=== PATIENT | male | born 1960 | race Caucasian/White ===

== ENCOUNTER 2018-03-29 13:05 | Observation (INO) ==
--- NOTE | 2018-03-29 13:45 | Emergency Department Note ---
Disposition Clinical Impression: Multiple rib fractures Qualifiers: Encounter type: initial encounter Fracture type: closed Laterality: left Qualified Code(s): S22.42XA - Multiple fractures of ribs, left side, initial encounter for closed fracture Disposition: Admitted As Inpatient Condition: Good Referrals: NONE,PCP [Primary Care Provider] - Forms: ED Satisfaction Letter Time of Disposition: 16:24 General Adult HPI - General Chief complaint: ED Fall Stated complaint: Fall 10-12' 1wk ago,CP,GABRIELA Time Seen by Provider: 03/29/18 13:44 Nursing Notes Reviewed: Yes Vital Signs Reviewed: Yes - History of Present Illness HPI Narrative: Male patient fell from a height of 10-12 feet approximately 1 week ago. No loss of consciousness but laid on the ground for a long period of time due to the pain and taking his breath. States he can no longer deal with the pain. Is complaining of left rib pain as well as left hip pain. Pain Scale: 10 - Related Data Home Medications Medication Instructions Recorded Confirmed No Known Home Drugs 03/29/18 03/29/18 Allergies Allergy/AdvReac Type Severity Reaction Status Date / Time meperidine [From Demerol] Allergy Anaphylaxis Verified 03/29/18 15:20 All systems ED: reviewed and negative except as stated. Constitutional: Denies: fever, chills Cardiovascular: Reports: chest pain (Left-sided to the ribs. Chest wall pain). Denies: syncope Respiratory: Reports: dyspnea (Cannot take a deep breath secondary to pain.). Denies: cough Gastrointestinal: Denies: abdominal pain, nausea, vomiting, diarrhea, hematemesis, melena, hematochezia Genitourinary: Denies: urgency, dysuria, frequency, testicular mass Musculoskeletal: Reports: other (Left hip pain). Denies: back pain, neck pain Integumentary: Denies: rash Neurological: Reports: weakness Past Medical History - Past Medical History Attestation: Yes The following information was validated with the patient. Source: patient Medical history: Reports: no medical history Psychiatric history: Reports: no psych history - Social History Smoking Status: Never smoker Alcohol use: Reports: occasionally Drug use: Reports: none Physical Exam - General Limitations: no limitations General appearance: alert, in no apparent distress - Head Head exam: atraumatic, normocephalic, normal inspection - Eye Eye exam: Present: normal appearance, PERRL, EOMI - ENT ENT exam: normal exam, normal oropharynx, mucous membranes moist - Neck Neck exam: Present: normal inspection, full ROM, trachea midline - Chest Chest inspection: Present: normal inspection, symmetric chest wall rise, tenderness (To palpation of left chest wall.) - Respiratory Respiratory exam: Present: normal lung sounds bilaterally, other (Diminished in the lower lobes.) - Cardiovascular Cardiovascular exam: Present: regular rate, normal rhythm, normal heart sounds - Abdominal Exam Abdominal exam: Present: soft, Non-Tender. Absent: tenderness, distention, guarding, rigidity, organomegaly, Rosales's sign, Rovsing's sign, tenderness at McBurney's Point - Extremities Exam Extremities exam: Present: normal inspection, full ROM, tenderness (To palpation of left hip. He has been ambulatory with no assistance.), normal capillary refill. Absent: pedal edema - Back Exam Back exam: Present: normal inspection, full ROM. Absent: tenderness - Neurological Exam Neurological exam: Present: alert, oriented X3 - Psychiatric Psychiatric exam: Present: normal affect, normal mood - Skin Skin exam: Present: warm, dry, intact, normal color Course Course Narrative: Male patient presents emergency department after a fall from 10-12 feet and off a ladder. This was mechanical. No loss of consciousness. This occurred one week ago. He was on the ground for an extended period of time secondary to pain and unable to catch his breath. Decided to come to the emergency department today because he can no longer stand the pain in his left side. He is also having some left hip pain. He states he cannot take a deep breath secondary to the pain. He does have multiple rib fractures on the left. Cerner for an increased mortality for the patient secondary to multiple rib fractures and him not being able to take a deep breath. There is also concern for predisposing the patient to pneumonia secondary to not take any deep breath. We have given pain medication here she has responded to well. However he states he is still in pain. He is mentating appropriately at this time. He is agreeable to admission for pain management as well as pulmonary therapy. - Consultations Consultation #1: Dr rodriguez accepted Pt in stable condition. Time: 16:11 Vital Signs Temperature 98.0 F 03/29/18 13:09 Pulse Rate 67 03/29/18 13:09 Respiratory Rate 20 03/29/18 13:09 Blood Pressure 152/90 03/29/18 13:09 O2 Sat by Pulse Oximetry 95 03/29/18 13:09 Temperature 98.0 F 03/29/18 13:40 Pulse Rate 69 03/29/18 15:41 Respiratory Rate 18 03/29/18 15:41 Blood Pressure 124/98 03/29/18 15:41 O2 Sat by Pulse Oximetry 95 03/29/18 13:40 Oxygen Delivery Oxygen Delivery Room Air Medical Decision Making - Medical Records Medical records reviewed: Yes I reviewed the patient's medical records. - Radiology Data Radiology results reviewed: Yes I reviewed the patient's radiology results. Chest X-Ray 03/29/18 13:14 IMPRESSION: Multiple left-sided rib fractures, including a displaced fracture of the left 6th rib, as well as nondisplaced fractures of the 7th, 8th and 9th ribs. No evidence of pneumothorax. D/ / 03/29/2018 14:02:04 Dre Barney MD / [email or web address] Interpreting Provider: Dre Barney MD Hip X-Ray 03/29/18 14:09 IMPRESSION: Right and left hip joint osteoarthritis. Prominence of the junction of the femoral head and neck bilateral can result in femoroacetabular impingement syndrome. Otherwise unremarkable AP pelvis and left hip radiographs. If pain persists or worsens, then additional evaluation with MRI is indicated to ensure no underlying radiographically occult process such as fracture, AVN or transient osteoporosis. D/ / Dandre Patel / Dandre Patel Interpreting Provider: Dandre Patel - EKG Data EKG #1 EKG attestation: Yes I reviewed and interpreted this EKG. EKG results narrative: Normal sinus rhythm at a rate of 65. CO interval is 131. QRS duration is 102. QT is 47. QTC is 419. No signs of acute ischemia. Good R-wave progression. No previous EKG to compare to.
--- NOTE | 2018-03-29 14:29 | Emergency Department Note ---
Disposition Clinical Impression: Multiple rib fractures Qualifiers: Encounter type: initial encounter Fracture type: closed Laterality: left Qualified Code(s): S22.42XA - Multiple fractures of ribs, left side, initial encounter for closed fracture Disposition: Still a Patient Forms: ED Satisfaction Letter General Adult HPI - General Chief complaint: ED Fall Stated complaint: Fall 10-12' 1wk ago,CP,GABRIELA Time Seen by Provider: 03/29/18 13:44 - History of Present Illness Pain Scale: 10 - Related Data Allergies Allergy/AdvReac Type Severity Reaction Status Date / Time No Known Allergies Allergy Verified 03/29/18 13:13 Past Medical History - Past Medical History Medical history: Reports: no medical history Psychiatric history: Reports: no psych history - Social History Smoking Status: Never smoker Alcohol use: Reports: occasionally Drug use: Reports: none Physical Exam - General General appearance: alert, in no apparent distress Course - Reevaluation(s) Reevaluation #1: Attestation note I examined this patient and my medical decision-making was reviewed with the emergency medicine resident. I agree with the documented findings, disposition and treatment plan as described except to the extent set forth below. Patient seen with emergency medicine resident Dr. Michelle Ramos, Please see a copy of his note for details of the H&P, ED evaluation, management and disposition. I have independently evaluated the patient and confirmed appropriate portions of the history and physical exam. Briefly: 57-year-old male slip fall off ladder about 10-12 feet several days ago arrives with left-sided back pain. No neck pain or loss of consciousness. Patient is neurologically nonfocal GCS 15. Otherwise healthy. Imaging so far reveals multiple left-sided rib fractures but no pneumothorax. This likely patient will need to be admitted to trauma service for further evaluation and management. Disposition pending Time: 14:26 Vital Signs Temperature 98.0 F 03/29/18 13:09 Pulse Rate 67 03/29/18 13:09 Respiratory Rate 20 03/29/18 13:09 Blood Pressure 152/90 03/29/18 13:09 O2 Sat by Pulse Oximetry 95 03/29/18 13:09 Temperature 98.0 F 03/29/18 13:40 Pulse Rate 67 03/29/18 13:40 Respiratory Rate 20 03/29/18 13:40 Blood Pressure 152/90 03/29/18 13:40 O2 Sat by Pulse Oximetry 95 03/29/18 13:40 Oxygen Delivery Oxygen Delivery Room Air
[2018-03-29] MEDS ORDERED: *HR* OxyCODONE/APAP 10/325 TABLET PO ONE (15:50)
[2018-03-29 16:20] LABS: Basophils # 0.1 K/mcL (0.0-0.2); Basophils % 0.6 %; Eosinophils # 0.2 K/mcL (0.0-0.6); Eosinophils % 1.7 %; Hemoglobin 14.8 g/dL (12.9-16.9); Immature Granulocytes % 0.2 % (0-4); Lymphocytes # 2.4 K/mcL (0.6-4.6); Lymphocytes % 24.9 %; Mean Corpuscular HGB Conc 34.4 g/dL (31.6-35.5); Mean Corpuscular Volume 90.1 fL (83.0-100.0); Mean Platelet Volume 10.6 fL (9.4-12.4); Monocytes # 0.9 K/mcL (0.0-1.3); Neutrophils # 6.2 K/mcL (1.6-8.9); Platelet Count 392 K/mcL (140-400); Red Blood Count 4.77 M/mcL (4.19-5.50); Segmented Neutrophils % 63.6 %
[2018-03-29 16:30] LABS: Alanine Aminotransferase 13 Units/L (7-52); Albumin 4.4 g/dL (3.5-5.7); Albumin/Globulin Ratio 1.5 (1.1-2.2); Alkaline Phosphatase 84 Units/L (34-104); Aspartate Amino Transferase 15 Units/L (13-39); BUN/Creatinine Ratio 17 (6-26); Bilirubin,Total 0.4 mg/dL (0.3-1.0); Blood Urea Nitrogen 17 mg/dL (6-20); Calcium 9.2 mg/dL (8.6-10.3); Carbon Dioxide 23 mEq/L (23-29); Chloride 106 mEq/L (98-107); Glucose 94 mg/dL (70-105); Osmolality,Calculated 285 (280-300); Potassium 4.1 mEq/L (3.5-5.1); Sodium 137 mEq/L (136-145); Total Protein 7.4 g/dL (6.4-8.9); eGFR For African Americans > 60 (> 60); eGFR For Non-African Americans > 60 (> 60)
--- NOTE | 2018-03-29 17:10 | Electrocardiograph Report ---
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
[2018-03-29] MEDS ORDERED: traMADol 50 MG TABLET PO PRN (19:42)
[2018-03-29] MEDS ORDERED: Naloxone 0.4 MG/ML INJ IVP PRN (19:42)
--- NOTE | 2018-03-29 20:44 | Internal Med History&Physical ---
Date of Encounter: 03/29/18 Time of Encounter: 18:15 Internal Medicine - H&P: HPI Chief complaint: rib pain Admitted From: Emergency Dept Plans for Post Hospital Care: Home History of present illness: Mr. Majano is a 57 year old male who presents to the ER with complaints of left sided rib pain after he sustained a fall on a ladder last week. He worked the next several days until 2 days ago when the pain became unbearable. Because of the unbearable pain, he came to ER where he was diagnosed with multiple rib fractures. Because of intractable pain, he was admitted to hospitalist service. Upon my assessment of the patient, patient confirms above history. 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 Despite the fall and injury, he continued to work until the pain became unbearable 2 days ago. For pain control, patient has not tried anything at home -- not even over- the-counter medications. He hoped that with simple rest and continued activity , symptoms would improve. However, the pain became worse and unbearable. He had a difficult time coughing and taking deep breaths due to pain in his ribs. He also has a history of spontaneous pneumothorax when he was a young man at the age of 21. He therefore came to the ER for evaluation. X-rays confirmed rib fractures but he had no evidence of pneumothorax. Regarding pain control, I emphasized to him that I will try him on some scheduled anti-inflammatories with some breakthrough medicine, such as Ultram. He emphasized to me that he does not like to take any addictive medications and/ or sedating-type medications, given his line of work. I am hopeful that the above regimen will work for him and allow him to return home tomorrow for ongoing healing and recovery. Past Med Surg Social Fam HX - Past Medical History Attestation: Yes The following information was validated with the patient. Source: patient Medical history: no medical history Additional medical history: spotaneous pneumothorax left lung at 21 yo requiring VATS pleurodesis Psychiatric history: no psych history - Past Surgical History Additional surgical history: VATS - Social History Smoking Status: Never smoker Alcohol use: occasionally Drug use: none Occupational status: employed Current living situation: Home, With Family Activity Level: Independent ambulation, Very active Recent Out of Country Travel Within the Last 8 Weeks: No - Family History Mother Living Status: Age at : 62 Cause of : Cancer Hx Family Cancer: Yes (brain) Father Living Status: Cause of : unknown Internal Medicine - H&P: Meds No Known Home Drugs 03/29/18 [History] 3 Allergy/AdvReac Type Severity Reaction Status Date / Time meperidine [From Demerol] Allergy Anaphylaxis Verified 03/29/18 15:20 - Constitutional Constitutional: no chills, no fever(s) - EENT Eyes: no blurry vision, no change in vision Ears: no tinnitus Nose, mouth and throat: no sore throat - Cardiovascular Cardiovascular ROS IM: chest pain (ribs), no dyspnea, no dyspnea on exertion, no lightheadedness, no syncope - Respiratory Respiratory: no cough, no dyspnea, no hemoptysis, no wheezing, no chest congestion, no excessive phlegm production, no change in phlegm color, no pain with cough - Gastrointestinal Gastrointestinal: no abdominal pain, no diarrhea, no hematemesis, no hematochezia, no melena, no nausea, no vomiting - Genitourinary Genitourinary ROS male: no dysuria, no flank pain, no hematuria - Musculoskeletal Musculoskeletal ROS IM: other (left lateral rib pains), no arthralgias, no back pain - Integumentary Integumentary IM: no rash, no jaundice - Neurological Neurological ROS: no confusion, no dizziness, no focal weakness, no frequent falls, no headache(s), no weakness - Psychiatric Psychiatric: no anxiety, no depression - Endocrine Endocrine IM: no polydipsia, no polyuria - Allergic/Immunologic Allergic/Immunologic: no GI upset with certain foods - Constitutional Vitals: Temp Pulse Resp BP Pulse Ox 98.2 F 73 16 115/69 96 03/29/18 19:07 03/29/18 19:07 03/29/18 19:07 03/29/18 19:07 03/29/18 19:07 General appearance: Present: cooperative, mild distress, A&O X 3, pleasant, answers questions appropriately - Head Head exam: Present: atraumatic, normal inspection - Eye Eye exam: Present: EOMI, PERRL. Absent: scleral icterus Pupils: Present: normal accommodation Additional comments: left eye twitching -- chronic per patient - ENT ENT exam: Present: mucous membranes dry, normal exam - Neck Neck exam general surgery: Present: full ROM, supple. Absent: tenderness, nuchal rigidity, thyromegaly - Respiratory Respiratory exam: Present: chest wall tenderness (left lateral ribpainful to touch, deep inspiraiton, and coughing), CTAB. Absent: rales, rhonchi, wheezes - Cardiovascular Cardiovascular exam: Present: RRR, +S1, +S2. Absent: diastolic murmur, systolic murmur - GI/Abdominal GI/Abdominal exam: Present: normal bowel sounds, soft. Absent: hepatomegaly, mass, splenomegaly, tenderness - Extremities Exam Extremities exam: Present: full ROM, normal capillary refill, warm, radial pulses palpable and symmetrical. Absent: pedal edema, tenderness - Back Exam Back exam: Present: normal inspection. Absent: CVA tenderness (L), CVA tenderness (R) - Neurological Exam Neurological exam: Present: alert, CN II-XII intact, oriented X3 - Psychiatric Psychiatric exam: Present: normal affect, normal mood - Skin Skin exam: Present: dry, warm. Absent: rash Internal Med - H&P Results - Labs CBC & Chem 7: 03/29/18 15:59 03/29/18 15:59 - Diagnostic Studies Chest x-ray Status: image reviewed by me (left rib fractures noted) - Assessment and plan (1) Multiple rib fractures Current Visit: Yes Status: Acute Assessment and plan: 1. Long discussion with patient regarding the slow healing process of rib fractures. 2. Will try scheduled Ibuprofen with Ultram for breakthrough pain PRN. 3. Will order incentive spirometry -- emphasized frequent use while awake in order to prevent pneumonia. 4. Probable discharge tomorrow if pain controlled. Qualifiers: Encounter type: initial encounter Fracture type: closed Laterality: left Qualified Code(s): S22.42XA - Multiple fractures of ribs, left side, initial encounter for closed fracture (2) DVT prophylaxis Current Visit: Yes Status: Acute Assessment and plan: 1. Heparin SQ.
[2018-03-29] MEDS: *HR* OxyCODONE Immed Rel 5 MG TABLET PO PRN (20:53)
[2018-03-29] MEDS: *HR* Heparin 5,000 UNIT/ML VIAL SQ SCH (20:53)
[2018-03-29 21:08] LABS: Bilirubin,Urine Negative (Negative); Blood,Urine Negative (Negative); Clarity,Urine Clear (Clear); Color,Urine Yellow (Yellow); Glucose,Urine (UA) Normal (Normal); Ketones,Urine Negative (Negative); Leukocyte Esterase,Urine Negative (Negative); Nitrite,Urine Negative (Negative); PH,Urine 5.5 pH Units (5.0-8.0); Protein,Urine Negative (Neg-Trace); Specific Gravity,Urine 1.029 (1.010-1.025); Urobilinogen,Urine Normal (Normal)
[2018-03-30] MEDS: Ibuprofen 400 MG TABLET PO SCH ×2 (00:30→05:51)
[2018-03-30] MEDS: *HR* Heparin 5,000 UNIT/ML VIAL SQ SCH (05:52)
[2018-03-30] MEDS: *HR* OxyCODONE Immed Rel 5 MG TABLET PO PRN (08:07)
[2018-03-30 11:11] VITALS: BP 129/82
[2018-03-30] MEDS ORDERED: *HR* HYDROcodone/Acet 5/325 mg TABLET PO PRN (11:45)
--- NOTE | 2018-03-30 12:05 | Discharge Summary ---
- NOTES TO OUTPATIENT PROVIDER Notes to Outpatient Provider: ppatient found to have displaced fracture of the sixth rib and nondisplaced fractures of the seventh, eighth and ninth ribs. Was sent home with 3 days of 5/325 [place] Date of Encounter: 03/30/18 Time of Encounter: 12:04 - Discharge Diagnosis (1) Multiple rib fractures Priority: Primary Status: Acute Assessment and Plan: discussed d/c vs staying an additional day since patient is continuing to have pain. Patient wishes to proceed with d/c 3-days 5/325 [place] Q6hrs and 800mg Ibuprofen x 3-weeks Return to work in 4-6 weeks, but only after clearance by PCP Instructed to f/u with PCP in 1-week of d/c and also f/u in 4-6 for work clearance Does not have PCP; being put in contact with residency clinic for f/u Verbalizes understanding and denies any further questions Qualifiers: Encounter type: initial encounter Fracture type: closed Laterality: left Qualified Code(s): S22.42XA - Multiple fractures of ribs, left side, initial encounter for closed fracture (2) DVT prophylaxis Priority: Secondary Status: Acute Hospital course: Mr. Majano is a 57 year old male who presented to the ER with complaints of left -sided rib pain. Was found to have a displaced fracture of the sixth rib, and nondisplaced fractures of the seventh, eighth and ninth ribs. X-rays did not show any evidence of pneumothorax. The patient is being treated with ice and ibuprofen: Patient however was reporting that he is continuing to have 6/10 pain. He was given [place] 5/325 Q6hrs PRN for pain x3 day course and instructed to f/u with PCP in 1-week. He was also given Ibuprofen 800mg TID x3 weeks. 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 Also, he was instructed to return to the ED should pain worsen or develop difficulty breathing. Patient verbalized understanding and denies any further questions. Discharge discussed with: patient, nurse - Time Spent with Patient Total time spent providing and/or coordinating discharge services: Less than 30 minutes - Discharge Medications Prescriptions: HYDROcodone/Acet 5/325 mg [Putney 5-325 mg] 1 tab PO Q6HR PRN 3 Days #9 tablet PRN Reason: Moderate Pain Ibuprofen [Motrin] 800 mg PO TID #63 tablet Home Medications: HYDROcodone/Acet 5/325 mg [[place]ney 5-325 mg] 1 tab PO Q6HR PRN 3 Days #9 tablet [Rx] Ibuprofen [Motrin] 800 mg PO TID #63 tablet 03/30/18 [Rx] Allergies/Adverse Reactions: 3 Allergy/AdvReac Type Severity Reaction Status Date / Time meperidine [From Demerol] Allergy Anaphylaxis Verified 03/29/18 15:20 Date of admission: 03/29/18 16:22 Primary care physician: PCP NONE Discharging clinician: Magdaleno Upton Anticipated date of discharge: 03/30/18 - Constitutional Vitals: Temp Pulse Resp BP Pulse Ox 98 F 58 16 129/82 96 03/30/18 11:09 03/30/18 11:09 03/30/18 11:09 03/30/18 11:09 03/30/18 11:09 General appearance: Present: cooperative, mild distress, A&O X 3, pleasant, answers questions appropriately - Head Head exam: Present: atraumatic, normocephalic - Eye Eye exam: Present: PERRL, conjuntiva pink, sclera anicteric Pupils: Present: PERRL - Neck Neck exam general surgery: Present: supple, trachea midline. Absent: lymphadenopathy - Respiratory Respiratory exam: Present: chest wall tenderness, CTAB. Absent: accessory muscle use, rales, rhonchi, wheezes - Cardiovascular Cardiovascular exam: Present: RRR, +S1, +S2. Absent: diastolic murmur, gallop, rubs, systolic murmur - GI/Abdominal GI/Abdominal exam: Present: normal bowel sounds, soft, no peritoneal signs. Absent: distended, tenderness - Extremities Exam Extremities exam: Present: normal capillary refill, normal inspection, warm, radial pulses palpable and symmetrical. Absent: calf tenderness, cyanotic, pedal edema, tenderness - Neurological Exam Neurological exam: Present: CN II-XII intact, oriented X3, no focal deficits. Absent: pronater drift, facial droop, speech deficit - Skin Skin exam: Present: dry, intact - Patient Status Disposition: Home, Self-Care Condition: Good Overall status at discharge: patient is progressing back to baseline - Discharge Instructions Instructions: Rib Fracture (DC) Follow Up With: NONE,PCP [Primary Care Provider] - (Please call [phone] to get set up with an [place] primary care provider) - Diet and Activity Activity: increase activity as tolerated, return to work once cleared by your PCP/specialist Diet: advance to your usual diet
== END 2018-03-30 14:00 | disposition home or self-care (01) ==
LOC: EMEROO 13:05 → 3BNU 13:05
PROVIDERS: ADMIT Pediatrics; ATTEND Pediatrics